=== PATIENT | female | born 1980 | race American Indian/Alaskan Native ===

== ENCOUNTER 2020-08-11 16:39 | Emergency (ER) | payer SELFPAY ==
[2020-08-11] MEDS ORDERED: ONDANSETRON 4 MG ODT TAB PO ONE (17:58)
--- NOTE | 2020-08-11 17:59 | Emergency Department Report ---
Blank Doc - Documentation Documentation: 39-year-old female that presents with abdominal pain with n/v. This initial assessment/diagnostic orders/clinical plan/treatment(s) is/are subject to change based on patient's health status, clinical progression and re- assessment by fellow clinical providers in the ED. Further treatment and workup at subsequent clinical providers discretion. Patient/guardians urged not to elope from the ED as their condition may be serious if not clinically assessed and managed. Initial orders include: 1- Patient sent to [facility] for further evaluation and treatment 2- labs 3- UA
[2020-08-11 18:41] LABS: Basophils # (Auto) 0.1 K/mm3 (0.0-0.1); Basophils % (Auto) 0.9 % (0.0-1.8); Hematocrit 37.8 % (30.3-42.9); Hemoglobin 11.8 gm/dl (10.1-14.3); Lymphocytes # (Auto) 0.8 K/mm3 (1.2-5.4); Lymphocytes % (Auto) 12.5 % (13.4-35.0); Mean Corpuscular HGB Conc 31 % (30-34); Mean Corpuscular Volume 76 fl (79-97); Monocytes # (Auto) 0.2 K/mm3 (0.0-0.8); Monocytes % (Auto) 3.1 % (0.0-7.3); Platelet Count 174 K/mm3 (140-440); Red Blood Count 5.01 M/mm3 (3.65-5.03); Red Cell Distribution Width 17.5 % (13.2-15.2)
[2020-08-11 19:05] LABS: Alanine Aminotransferase 14 units/L (7-56); Albumin 5.1 g/dL (3.9-5); Blood Urea Nitrogen 13 mg/dL (7-17); Calcium 10.6 mg/dL (8.4-10.2); Hemolysis Index 21
[2020-08-11 19:06] LABS: BUN/Creatinine Ratio 19
[2020-08-11] MEDS ORDERED: SODIUM CHLORIDE 0.9% 1000 ML 1,000 ML IV ONE (20:09)
[2020-08-11] MEDS ORDERED: METOCLOPRAMIDE 10 MG/2 ML INJ IV ONE (20:09)
[2020-08-11] MEDS ORDERED: MORPHINE 2 MG/1 ML INJ IV ONE (20:09)
--- NOTE | 2020-08-11 20:14 | Emergency Department Report ---
ED Abdominal Pain HPI - General Chief Complaint: Nausea/Vomiting/Diarrhea Stated Complaint: N/V ABD PAIN Time Seen by Provider: 08/11/20 17:57 Source: patient, EMS Mode of arrival: Ambulatory Limitations: No Limitations - History of Present Illness Initial Comments: 39-year-old female with history of chronic abdominal issues presents to ED with exacerbation of abdominal pain, nausea and vomiting. Patient states she has been having these episodes for years. States she has been seen by GI and has undergone upper endoscopy and colonoscopy, but states they have not found a cause for her symptoms. Patient reports onset of epigastric pain earlier today along with vomiting and small amount of diarrhea. She denies any fever. Patient is requesting morphine and Phenergan for symptom relief. States that is the only thing that helps her pain and vomiting. Patient denies any marijuana use. Denies any history of diabetes. MD Complaint: abdominal pain -: This morning Location: epigastric Radiation: none Migration to: no migration Quality: cramping Consistency: constant Improves With: nothing Worsens With: nothing Associated Symptoms: nausea, vomiting, diarrhea. denies: fever - Related Data Previous Rx's Medication Instructions Recorded Last Taken Type Dicyclomine [Bentyl] 20 mg PO QID PRN #20 tablet 08/11/20 Unknown Rx Promethazine [Phenergan TAB] 25 mg PO Q6HR PRN #20 tab 08/11/20 Unknown Rx Allergies Allergy/AdvReac Type Severity Reaction Status Date / Time No Known Allergies Allergy Unverified 08/11/20 16:59 ED Review of Systems ROS: Stated complaint: N/V ABD PAIN Other details as noted in HPI Comment: All other systems reviewed and negative Constitutional: denies: chills, fever Gastrointestinal: abdominal pain, nausea, vomiting, diarrhea ED Past Medical Hx - Past Medical History Previous Medical History?: Yes Hx Hypertension: Yes (borderline) Additional medical history: heart murmur - Surgical History Past Surgical History?: No - Social History Smoking Status: Never Smoker Substance Use Type: None - Medications Home Medications: Home Medications Medication Instructions Recorded Confirmed Last Taken Type Dicyclomine [Bentyl] 20 mg PO QID PRN #20 tablet 08/11/20 Unknown Rx Promethazine [Phenergan TAB] 25 mg PO Q6HR PRN #20 tab 08/11/20 Unknown Rx ED Physical Exam - General Limitations: No Limitations General appearance: alert, in no apparent distress - Head Head exam: Present: atraumatic, normocephalic - Eye Eye exam: Present: normal appearance, EOMI - ENT ENT exam: Present: mucous membranes moist - Neck Neck exam: Present: normal inspection - Respiratory Respiratory exam: Present: normal lung sounds bilaterally. Absent: respiratory distress - Cardiovascular Cardiovascular Exam: Present: regular rate, normal rhythm - GI/Abdominal GI/Abdominal exam: Present: soft, tenderness (Mild diffuse). Absent: distended - Extremities Exam Extremities exam: Present: normal inspection - Neurological Exam Neurological exam: Present: alert, oriented X3 - Psychiatric Psychiatric exam: Present: normal affect, normal mood - Skin Skin exam: Present: warm, dry, intact, normal color ED Course Vital Signs 08/11/20 08/11/20 17:01 23:05 Temperature 97.4 F L Pulse Rate 57 L 65 Respiratory 18 17 Rate Blood Pressure 173/86 Blood Pressure 158/90 [Right] O2 Sat by Pulse 100 99 Oximetry ED Medical Decision Making - Lab Data Result diagrams: 08/11/20 18:20 08/11/20 18:20 - Radiology Data Radiology results: report reviewed, image reviewed - Medical Decision Making 39-year-old female with exacerbation of chronic abdominal pain and vomiting. Vital signs are normal except for mildly elevated blood pressures. Labs are unremarkable. Abdominal series shows no acute findings. Patient feeling much better following IV fluids and meds. Okay for discharge at this time. Outpatient follow-up advised, return precautions given. - Differential Diagnosis Chronic abdominal pain, IBS, UTI, bowel obstruction Critical care attestation.: If time is entered above; I have spent that time in minutes in the direct care of this critically ill patient, excluding procedure time. ED Disposition Clinical Impression: Abdominal pain, Nausea & vomiting Disposition: DC-01 TO HOME OR SELFCARE Is pt being admited?: No Condition: Stable Instructions: Abdominal Pain, Adult, Nausea and Vomiting, Adult Prescriptions: Dicyclomine [Bentyl] 20 mg PO QID PRN #20 tablet PRN Reason: abdominal pain Promethazine [Phenergan TAB] 25 mg PO Q6HR PRN #20 tab PRN Reason: Nausea Referrals: [facility] [Provider Group] - 3-5 Days [facility] [Provider Group] - 3-5 Days [facility], [Primary Care Provider] - 3-5 Days Time of Disposition: 22:46
--- NOTE | 2020-08-11 22:34 | XRay Report ---
ABDOMEN 2 VIEW WITH PA CHEST INDICATION / CLINICAL INFORMATION: pain, vomiting. Abdominal pain COMPARISON: None available. FINDINGS: PA view of the chest demonstrates normal cardiac silhouette and pulmonary vascularity. Both lungs are well-expanded and are clear. Supine and erect views of the abdomen demonstrate a normal bowel gas pattern. No free air is present. No calcifications are noted in the region of the urinary tract. IMPRESSION: No acute finding within the abdomen or chest. Signer Name: Geneva Cota MD Signed: 08/11/2020 10:29 PM Workstation Name: [id number]
[2020-08-12 03:26] VITALS: BP 158/90
== END 2020-08-11 23:05 | disposition home or self-care (01) ==
LOC: ED 16:39
DX: R11.2 Nausea with vomiting, unspecified (principal); R10.9 Unspecified abdominal pain; I10 Essential (primary) hypertension; Z79.899 Other long term (current) drug therapy
CPT/HCPCS: 36415; 74022; 80053; 83690; 84703; 85025; 96361; 96374; 96375; 99284; J2270; J2765; J7030; Q0162